=== PATIENT | male | born 1965 | race Caucasian/White ===

== ENCOUNTER 2016-08-20 11:31 | Emergency (ER) | payer OTHER ==
[~2016-08-20] VITALS: Ht 188 cm; Wt 103.0 kg
[~2016-08-20 11:31] MED LIST: ASPI325T32 PO; CHOL100043 PO; ESOM40CA41 PO; GABA600T2 PO; MAGN250T29 PO; METO-274 PO; RANI150C4 PO; SIMV20TA4 PO; SUCR1ORA PO
[2016-08-20 11:35] VITALS: BP 116/76; PULSE 60; RESP 16; O2SAT 99
--- NOTE | 2016-08-20 11:59 | ED.REPORT ---
HPI-General Illness Date of Service Aug 20, 2016 ED Provider: Dr. Galicia A 51 year old male with a history of HTN, DVT, and hypercholesterolemia presents to the ED complaining of intermittent episodes of cold sweats onset 5 days ago. Episodes last from 10-15 minutes. Yesterday,he noticed a particularly bad episode yesterday at work where his visited him and commented that she could see sweat on his forehead and coming through his jacket. He felt nausea 10 -15 minutes after his left. He has nausea right now. Per , the patient has had these episodes of cold sweats for a while, with the patient experiencing episodes more frequently in the last few days. She reports that he looks very sick and has dark eyes during these episodes of cold sweats. The patient also reports loose stools yesterday,a headache in the anabaptist area onset this morning and an intermittent cough onset April that has never completely gone away. Per , patient had pain in his leg two weeks ago. He denies any dysuria, hematochezia, syncope, pain with breathing, sore throat, or congestion. He has not started any new medications lately. 9 days ago, the patient and his got back from a road trip and from [place], [place], where the patient was sitting in the car for the whole time. Nursing Notes Stated Complaint: CHILLS/FEVER Chief Complaint: General Complaint Nursing Notes Reviewed: Yes Allergies: Coded Allergies: No Known Allergies (Verified Allergy, Unknown, 08/20/16) Scheduled Aspirin (Aspirin) 325 Mg Tablet 325 MG PO DAILY Cholecalciferol (Vitamin D3) (Vitamin D) 1,000 Unit Tablet 1,000 UNIT PO DAILY Esomeprazole Magnesium (Nexium) 40 Mg Capsule.dr 40 MG PO BIDAC Gabapentin (Gabapentin) 600 Mg Tablet 300 MG PO HS Magnesium Oxide (Magnesium) 250 Mg Tablet 250 MG PO DAILY Metoprolol Succinate ER (Metoprolol Succinate ER) 100 Mg Tab.er.24h 50 MG PO BID Ranitidine (Ranitidine) 150 Mg Capsule 150 MG PO BID Simvastatin (Simvastatin) 20 Mg Tablet 20 MG PO HS Scheduled PRN Sucralfate (Sucralfate) 1 Gm/10 Ml Oral.susp 10 ML PO QID PRN PRN For Indigestion take up to 4 times a day before meals if needed for stomach protection General Time Seen by MD: 11:59 Chief Complaint Other (cold sweats) Hx Obtained From: Patient, Spouse Arrived By: Walk-in Sudden in Onset?: No Onset Occurred: More than a week ago... (11 days ago) Symptom Duration: Intermittent Severity: Current: Mild Severity: Maximum: Mild Recent Healthcare: No recent doctor visit Similar Sx Previous: No Well's Criteria for PE Prior DVT or PE (1.5) Well's PE Score: 0-2 pts (low risk 3.6%) Past Medical History Past Medical History Notes: PCP: Dr. Ruiz, [facility] [employer] Instructor: Dr. Nadia Trent in [facility] Past Medical History Spinal stenosis DVT, 4-5 years ago. Uderlying cause was never identified. There was suspicion for it being trauma related. He was put on blood thinners for 1-1.5 years. Cholesterol test on Mar.08 which revealed slight anemia that was never investigated. Recent hospitalization for nuclear medicine stress test with normal result and no perfusion deficits. Carotid doppler study showed normal results and normal Chest XRray results as well. ALENA on CPAP Hypercholesterolemia Takes Aspirin, Nexium, and Reports: GERD, Hyperlipidemia, Hypertension (takes metoprolol), Denies: Cancer Reports: Atrial fibrillation Past Surgical History Vasectomy- Vasectomy reversal Family History Aunt and two grandparents with cancer. Smoking History Former Smoker (quit in 2014) Social History Patient works in [employer]. He lives in [place], [place]. Alcohol Use: "Social" (1 drink per month) Drug Use: Denies drug use Ambulatory Status Independent Review of Systems Cold sweats. Denies pain with breathing. Full Review of Systems Ears / Nose / Throat: Denies: Nasal congestion, Sore throat Respiratory: Reports: Non-productive cough GI: Reports: Diarrhea (loose stool), Nausea, Denies: Hematochezia Male: Denies Dysuria Neurologic: Reports: Headache, Denies: Syncope Complete sys rev & neg: except as marked. Physical Exam NORMAL Vital Signs Vital Signs Date Time Temp Pulse Resp B/P Pulse Ox O2 Delivery O2 Flow Rate FiO2 08/20/16 13:53 75 18 106/52 98 Room Air 08/20/16 13:46 36.8 66 15 90/60 97 Room Air 08/20/16 11:51 36.7 08/20/16 11:35 60 16 116/76 99 Room Air Initial VS: Reviewed General/Constitutional: Awake, Alert Head / Eyes: Atraumatic, Normocephalic, PERRL, EOMI ENT: Atraumatic, Mucous membranes moist Neck: Atraumatic, Full range of motion Respiratory / Chest: Atraumatic, Breath sounds NL, Breath sounds = bilat, No respiratory distress, No rales, No rhonchi, No wheezing Cardiovascular: Heart rate NL, Regular rhythm, Heart sounds NL, No gallop, No murmurs, No rubs Abdomen: No guarding, No rebound Upper Extremities Upper Extremity / MS: No swelling, No edema Skin: Atraumatic, Color NL, Warm, Dry Neurologic: Oriented X3, Speech NL Interpretation & Diagnostics Lab Results Interpretation Result Diagram: 08/20/16 1232 08/20/16 1232 Test 08/20/16 12:00 08/20/16 12:32 Urine Color Yellow (YELLOW) Urine Appearance Clear (CLEAR,HAZY) Urine pH 6.0 (5.0-8.0) Urine Specific [place] 1.025 (1.003-1.035) Urine Protein Negativemg/dL (NEG,TRACE) Urine Glucose (UA) Negativemg/dL (NEGATIVE) Urine Ketones Negativemg/dL (NEGATIVE) Urine Occult Blood Negative (NEGATIVE) Urine Nitrite Negative (NEGATIVE) Urine Bilirubin Negative (NEGATIVE) Urine Urobilinogen Normalmg/dL (NORMAL) Urine Leukocyte Esterase Negative (NEGATIVE) Urine RBC 0-2/hpf (0-2) Urine WBC 0-5/hpf (0-5) Urine Epithelial Cells Occasional/hpf (NONE-MOD) Urine Crystals None seen (NONE SEEN) Urine Bacteria None/hpf (NONE-FEW) Urine Hyaline Casts Occasional/lpf (NONE) Urine Granular Casts None seen (NONE SEEN) Urine Waxy Casts None seen (NONE SEEN) Urine Red Blood Cell Casts None seen (NONE SEEN) Urine White Blood Cell Casts None seen (NONE SEEN) Urine Mucus Present (None Seen) Urine Trichomonas None seen (NONE SEEN) Urine Yeast None (NONE SEEN) Urinalysis Comment None Urine Culture Reflexed Not indicated Hold Urine Received (Received) White Blood Count 5.3th/mm3 (3.8-10.1) Red Blood Count 4.51mil/mm3 (4.40-5.80) Hemoglobin 13.6g/dL (13.8-17.2) Hematocrit 40.9% (41.0-50.0) Mean Corpuscular Volume 90.7fL (81-100) Mean Corpuscular Hemoglobin 30.2pg (27.0-35.0) Mean Corpuscular Hemoglobin Concent 33.3% (32.0-37.0) Red Cell Distribution Width 12.8% (12.3-15.4) Platelet Count 223bil/L (150-400) Neutrophils (%) (Auto) 58.9% (40-74) Lymphocytes (%) (Auto) 33.2% (14-46) Monocytes (%) (Auto) 6.6% (4-12) Eosinophils (%) (Auto) 0.9% (0-5) Basophils (%) (Auto) 0.4% (0-3) D-Dimer < 0.50mg/L FEU (<0.50) Sodium Level 142mEq/L (134-144) Potassium Level 4.5mEq/L (3.5-5.2) Chloride Level 105mEq/L (97-108) Carbon Dioxide Level 23mmol/L (18-29) Blood Urea Nitrogen 13mg/dL (6-24) Creatinine 1.17mg/dL (0.76-1.27) Estimat Glomerular Filtration Rate 70mL/min (>59) Glucose Level 115mg/dL (60-99) Calcium Level 9.5mg/dL (8.5-10.1) Total Bilirubin 0.3mg/dL (0.0-1.2) Aspartate Amino Transf (AST/SGOT) 13U/L (0-50) Alanine Aminotransferase (ALT/SGPT) 15U/L (0-44) Alkaline Phosphatase 94U/L (25-150) Troponin T < 0.010ug/L (0.0-0.011) Total Protein 7.0g/dL (6.4-8.4) Albumin 4.2g/dL (3.4-5.0) Lipase 60U/L (13-60) Hold Vaughn Top Tube Received (Received) ECG Interpretation ECG Interpretation: Rate is 57. Sinus Rhythm. ST elev, probable normal early repol pattern Time: 12:45 Interpreted by: ED physician Re-Eval/Medical Decision Source of Hx: Old records Time of Eval: 13:48 Patient Status: Condition improved Re-Evaluation/Progress Note: Rechecked patient, explained test results, diagnosis, and plan for discharge. Patient understands and agrees with the plan. All questions addressed. Counseled Regarding: Diagnosis, Lab results, Need for follow-up, When/why to return to ED Discharge & Departure Primary Impression: Abnormal flushing and sweating Disposition: Home Discharge Condition All VS Reviewed: Yes Condition: Stable Additional Instructions: No dangerous cause for your symptoms is discovered today. Follow-up Friday or Friday if the symptoms persist. Follow-up right away for worsening symptoms such as fainting, severe persistent chest pain, high fever, or uncontrolled vomiting. Referrals: JOSY BENÍTEZ (PCP) Casi Attestation Portions of this note were transcribed by Kehinde Posey. I, Dr. Galicia personally performed the history, physical exam and medical decision-making; I reviewed and confirmed the accuracy of the information in the transcribed note. Signed by: Casi Beltran, 08/20/2016, [id number]. copies to: JOSY BENÍTEZ Kirk H MD Aug 20, 2016 11:59 Kehinde Posey Aug 20, 2016 12:11
[2016-08-20 12:42] LABS: BASOPHILS % (AUTO) 0.4 % (0-3); EOSINOPHILS % (AUTO) 0.9 % (0-5); MONOCYTES % (AUTO) 6.6 % (4-12); Mean Corpuscular Hemoglobin 30.2 pg (27.0-35.0); Mean Corpuscular Volume 90.7 fL (81-100); NEUTROPHILS % (AUTO) 58.9 % (40-74); Platelet Count 223 bil/L (150-400)
[2016-08-20 12:53] LABS: APPEARANCE,URINE CLEAR (CLEAR,HAZY); COLOR,URINE YELLOW (YELLOW); OCCULT BLOOD,URINE NEGATIVE (NEGATIVE); UROBILINOGEN,URINE NORMAL (NORMAL)
[2016-08-20 13:11] LABS: TROPONIN T < 0.010 ug/L (0.0-0.011)
[2016-08-20 13:25] LABS: Lipase 60 U/L (13-60)
[2016-08-20 13:46] VITALS: BP 90/60; PULSE 66; RESP 15; O2SAT 97
[2016-08-20 13:53] VITALS: BP 106/52; PULSE 75; RESP 18; O2SAT 98
== END 2016-08-20 13:52 | disposition home or self-care (01) ==
LOC: SED 11:31
DX: R23.2 Flushing (principal); R61 Generalized hyperhidrosis; I10 Essential (primary) hypertension; E78.00 Pure hypercholesterolemia, unspecified; K21.9 Gastro-esophageal reflux disease without esophagitis; I48.91 Unspecified atrial fibrillation; Z86.718 Personal history of other venous thrombosis and embolism; Z79.891 Long term (current) use of opiate analgesic; Z79.82 Long term (current) use of aspirin; Z87.891 Personal history of nicotine dependence